=== PATIENT | female | born 1945 | race Caucasian/White ===

== ENCOUNTER → 2020-09-09 | Outpatient (CLI) | payer BC ==
[~2020-09-09] MED LIST: ADULT LOW DOSE81 MG; AMARYL4 MG PO; APAP650 PO; ATENOLOL 50 MG50 M1; ATENOLOL 50MG T50 M1 PO; CALICUM 500+D1 EACH PO; CARDIZEM CD120 MG PO; CEFPODOXIME PR200 M1 PO; DILTIAZEM ER180 M1 PO; DITROPAN XL10 M1; DIVIGEL0.5 MG PO; ELIQUIS5 MG PO; FIBER TABS625 MG; FISH OIL 1,2001 EAC3 PO; FLAGYL500 M1 PO; FLECAINIDE ACET50 M1 PO; FLUTICASONE PRO30 G1 TOP; GLUCOPHAGE500 MG; GLUCOPHAGE500 MG PO; GLUCOSAMINE &1 EACH PO; LEVEMIR SUBQ; LEVEMIR100 UNIT/1; LEVEMIR100 UNIT/1 SUBQ; LEVOTHYROXIN0.025 MG PO; LIPITOR10 MG PO; LISINOPRIL-HCT1 EAC1 PO; LISINOPRIL-HCT1 EAC2 PO; LYRICA 75 MG CA75 MG PO; LYRICA100 MG PO; MULTIVITAMINS; MULTIVITAMINS PO; NASONEX17 GM PO; NATURAL FIBER PO; NOVOLOG100 UNIT/1 SUBQ; OCUVITE PRESER1 EACH; OMEPRAZOLE 20 M20 M1 PO; POTASSIUM20; PRADAXA150 MG PO; PRAVACHOL40 MG PO; SIMVASTATIN40 MG; SIMVASTATIN40 MG PO; SORINE 80 MG TA80 M1 PO; SORINE 80 MG TA80 MG PO; SPIRONOLACTONE25 M1; XALATAN2.5 ML
[2020-09-09 11:24] LABS: HEMOGLOBIN 13.5 gm/dL (12.0-15.0); MCH 29.7 pg (26.0-34.0); RBC 4.56 mil/uL (4.20-5.00); WBC 7.5 thou/uL (4.0-11.0)
[2020-09-09 11:41] LABS: ALBUMIN 3.8 g/dL (3.4-5.0); CALCIUM 9.5 mg/dL (8.5-10.1); POTASSIUM 3.7 mmol/L (3.5-5.1); TOTAL BILIRUBIN 0.4 mg/dL (0.2-1.0); TOTAL PROTEIN 7.3 g/dL (6.4-8.2)
== END ==
LOC: CAT 10:09
PROVIDERS: ATTEND Internal Medicine Cardiovascular Disease
DX: Z01.818 Encounter for other preprocedural examination (principal); I48.91 Unspecified atrial fibrillation; I25.10 Atherosclerotic heart disease of native coronary artery without angina pectoris; R91.8 Other nonspecific abnormal finding of lung field; M47.814 Spondylosis without myelopathy or radiculopathy, thoracic region; Z90.49 Acquired absence of other specified parts of digestive tract; Z88.0 Allergy status to penicillin; Z88.8 Allergy status to other drugs, medicaments and biological substances

== ENCOUNTER → 2020-09-09 | Outpatient (CLI) | payer BC | LOC: LAB 09:41 | PROVIDERS: ATTEND Internal Medicine Cardiovascular Disease | DX: Z01.812 Encounter for preprocedural laboratory examination (principal); Z20.822 Contact with and (suspected) exposure to COVID-19 ==

== ENCOUNTER 2020-09-11 06:24 | Observation (INO) | payer BC ==
[~2020-09-11] VITALS: Ht 157.5 cm; Wt 90.7 kg
--- NOTE | ~2020-09-11 | P ---
[facility] [place] [address] PROCEDURE REPORT Name: AMANDA MAHONEY Room #: REG RAEANN Eveline.#: [id number] Admission: 09/11/20 Attend Phys: Dwayne Anand MD Discharge: Date of : 41 Report #: [id number] THIS REPORT FOR: cc: Priti Bai Linda J. DO Couchonnal, Luis F. MD ~ PREOPERATIVE DIAGNOSIS: Atrial fibrillation. POSTOPERATIVE DIAGNOSIS: Atrial fibrillation. PROCEDURES PERFORMED: 1. Atrial fibrillation ablation, CPT code 13938. 2. 3D mapping, CPT code 27487. 3. Intracardiac echo, CPT code 60066. 4. Preprocedural pacemaker reprogramming, CPT code 09605. 5. Postprocedural pacemaker reprogramming, CPT code 44677. ANESTHESIA: The patient underwent general anesthesia with no anesthesia related complications. DESCRIPTION OF PROCEDURE: The patient underwent informed consent. We discussed the details of the procedure including the risks, which include but not limited to bleeding, infection, vascular damage, cardiac perforation, stroke and VA. She understood these risks and is willing to proceed. The patient was brought to EP laboratory in fasting and sedated state, prepped and draped in sterile fashion. Pacemaker was reprogrammed. I turned off rate response. Next, I obtained access to the right femoral vein x 3, placing 8, 9 and 7-[place] short sheath using the modified Seldinger technique. Next, under fluoroscopy, a decapolar catheter was placed in the coronary sinus and later used for phrenic nerve pacing. ICE catheter was placed in the right atrium. At baseline, the patient was in sinus rhythm. Using intracardiac ultrasound, the patient had evidence of two left and two right pulmonary veins and a nice thin interatrial septum. The patient was systemically heparinized and a transseptal was performed using an SL1 sheath and a [place] needle. Next, using a Lasso catheter, 3D geometry of the left atrium was created and ablation was initiated. Using the cryoballoon, the left superior pulmonary vein underwent a 4-minute freeze and the vein isolated in 65 seconds. The left inferior pulmonary vein underwent a 4-minute freeze and isolated within 36 seconds. I then moved to the right superior pulmonary vein. We started isolating within 30 seconds. The vein was isolated and at 60 seconds, I noticed phrenic nerve weakness and ____ capture. I came off and double tapped the balloon and I tried looking for the phrenic using the quadripolar catheter as well as the Lasso catheter and we monitored for a period of an hour and 30 minutes and there was no return of phrenic nerve capture. As such, at this point, we decided to conclude the procedure and attempts at isolating the right inferior pulmonary vein were not [facility] [address] [place] [address] PROCEDURE REPORT Name: DENZELAMANDA Back Room #: REG RAEANN Cristobal#: [id number] Admission: 09/11/20 Attend Phys: Dwayne Anand MD Discharge: Date of : 41 Report #: [id number] performed. Using intracardiac ultrasound, there was no evidence of pericardial effusion. The patient received systemic protamine and the pacemaker was re-interrogated and found to be functioning normally and programmed back to its original settings. CONCLUSIONS: 1. Successful AFib ablation with isolation of the left superior, left inferior, and right superior pulmonary veins. 2. 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 3. Successful pacemaker reprogramming. PLAN: The patient will be monitored in the hospital overnight and we will perform significant test tomorrow with a chest x-ray. By: [id number] Dwayne Anand MD /nt
[~2020-09-11 06:24] MED LIST changes: -DILTIAZEM ER180 M1 PO; -LEVEMIR100 UNIT/1 SUBQ
[2020-09-11] MEDS ORDERED: DILTIAZEM ER180 M1 PO (07:22)
[2020-09-11 07:25] VITALS: BP 126/44
[2020-09-11] MEDS ORDERED: LEVEMIR100 UNIT/1 SUBQ (07:26)
[2020-09-11 07:43] LABS: ABSOLUTE NEUTROPHILS 4.2 thou/uL (1.4-8.2); BASOPHILS 0.9 % (0.0-2.0); HEMATOCRIT 39.8 % (37.0-47.0); HEMOGLOBIN 13.3 gm/dL (12.0-15.0); LYMPHOCYTES 34.7 % (24.0-44.0); MCH 29.9 pg (26.0-34.0); MCHC 33.5 g/dL (28.0-37.0); MCV 89.3 fL (80.0-100.0); MONOCYTES 8.7 % (1.0-8.0); PLATELET COUNT 209 thou/uL (150-400); POLYS 53.7 % (36.0-66.0); RBC 4.46 mil/uL (4.20-5.00); RDW 14.1 % (10.5-14.5); WBC 7.7 thou/uL (4.0-11.0)
[2020-09-11 07:52] LABS: CALCIUM 9.9 mg/dL (8.5-10.1); CREATININE 1.1 mg/dL (0.6-1.0); POTASSIUM 3.6 mmol/L (3.5-5.1)
[2020-09-11 08:00] LABS: ALBUMIN 3.9 g/dL (3.4-5.0); TOTAL BILIRUBIN 0.4 mg/dL (0.2-1.0); TOTAL PROTEIN 7.4 g/dL (6.4-8.2)
[2020-09-11 08:05] LABS: APTT 26.6 Seconds (24.5-32.8); PROTIME 10.6 Seconds (9.3-11.4)
[2020-09-11 19:46] VITALS: BP 93/73
--- NOTE | 2020-09-11 20:33 | NUR ---
PT TO THE UNIT POST ABLATION. GROIN SITE C/D/I/. PT WITH CO'S OF BACK PAIIN - TYLENOL ORDER OBTAINED AND GIVEN TO PATIENT. PT UP ON THE SIDE OF THE BED AND TO THE CHAIR - GROIN REMIANED STABLE - DEEPA DIET AND FLUIDS. VSS. PAEZ CATH REMAINS INSITU- NO CO'S AT THE PRESENT TIME.
[2020-09-12 00:10] VITALS: BP 146/53
[2020-09-12 04:53] VITALS: BP 150/68
--- NOTE | 2020-09-12 05:58 | NUR ---
ASSUMED CARE OF THE PATIENT AT 1900; AOX4; C/O OF CHRONIC PAIN TO BACK MANAGED WITH PRN MEDICATIONS; SR ON THE MONITOR; RT GROIN SITE C/D/I AND NO HEMATOMA; UP AD TAMEKA TO TOILET WITH WALKER ON STB; PLAN IS FOR PATIENT TO D/C TO HOME TODAY; WILL CONTINUE TO MONITOR.
[2020-09-12] MEDS ORDERED: FLECAINIDE ACET50 M1 PO ×3 (07:33→08:25)
[2020-09-12 09:00] VITALS: BP 134/62
[2020-09-12 09:32] VITALS: BP 134/62
--- NOTE | 2020-09-12 12:03 | NUR ---
ASSUMED CARE OF PT AT SHIFT CHNAGE. ASSESSMENT CHARTED. MEDS GIVEN PER NOV. PT A&OX4, NO C/O PAIN, SOA OR DISTRESS. READY TO GO HOME. DISCHARGE ORDERS AND INSTRUCTIONS COMPLETE. IV AND TELE DC'D. PT TAKEN VIA WHEELCHAIR TO MAIN ENTRANCE TO HUSBANDS WAITING CAR.
== END 2020-09-12 11:52 | disposition home or self-care (01) ==
LOC: CATH 06:24 → 2N 15:58 → CATH 15:59 → 2N 15:59
PROVIDERS: ADMIT Internal Medicine Cardiovascular Disease; ATTEND Internal Medicine Cardiovascular Disease
DX: I48.91 Unspecified atrial fibrillation (principal); I49.5 Sick sinus syndrome; I10 Essential (primary) hypertension; E11.9 Type 2 diabetes mellitus without complications; I63.9 Cerebral infarction, unspecified; Z79.82 Long term (current) use of aspirin; Z79.4 Long term (current) use of insulin; Z20.828 Contact with and (suspected) exposure to other viral communicable diseases
CPT/HCPCS: 62110; 62900; 65020; 65040; 70005